=== PATIENT | female | born 1980 | race Caucasian/White ===

== ENCOUNTER 2021-12-12 13:09 | Emergency (ER) | payer OTHER ==
[~2021-12-12] VITALS: Ht 172.7 cm; Wt 59.0 kg
[2021-12-12] MEDS ORDERED: APPLE CIDER VINEGAR PO (13:45)
[2021-12-12] MEDS ORDERED: MAG HYDROX/AL HYDROX/SIMETH 30 ML LIQUID UDC PO ONE (13:45)
[2021-12-12] MEDS ORDERED: MAG HYDROX/AL HYDROX/SIMETH 30 ML LIQUID UDC ONE (13:49)
[2021-12-12 13:55] LABS: MEAN CORPUSCULAR HEMOGLOBIN 29.7 uug (24.7-32.8); MEAN CORPUSCULAR VOLUME 86.8 fL (75.5-95.3); PLATELET COUNT (AUTO) 252 K/uL (179-408)
[2021-12-12 14:01] LABS: CREATININE 0.6 mg/dL (0.6-1.3); POTASSIUM 3.3 mmol/L (3.5-5.1)
[2021-12-12 14:07] LABS: BILIRUBIN,DIRECT 0.2 mg/dL (0.0-0.2); BILIRUBIN,TOTAL 0.7 mg/dL (0.2-1.0); TOTAL PROTEIN, SERUM 7.7 g/dL (6.4-8.2)
[2021-12-12 14:16] LABS: *URINE HCG, QUAL NEG (NEGATIVE)
[2021-12-12] MEDS ORDERED: ACET-2154 PO (14:30)
[2021-12-12] MEDS ORDERED: PANT40TA2 PO (14:30)
[2021-12-12] MEDS ORDERED: HYDR-3980 PO (14:46)
[2021-12-12] MEDS ORDERED: POTA-194 PO (14:49)
[2021-12-12] MEDS ORDERED: POTASSIUM CHLORIDE 20 MEQ TAB.PRT.SR PO ONE (15:00)
--- NOTE | 2021-12-12 15:01 | NUR ---
PT WAS EVALUATED BY DR BARON. PT WAS D/C'd TO HOME. D/C INSTRUCTIONS GIVEN TO THE PT BY DR BARON.
[2021-12-12 15:03] VITALS: BP 129/71
== END 2021-12-12 16:05 | disposition home or self-care (01) ==
LOC: ER 13:09
DX: R10.9 Unspecified abdominal pain (principal); E87.6 Hypokalemia; Z79.899 Other long term (current) drug therapy
CPT/HCPCS: 36415; 76700; 83690; 84703; 85025; A4663

== ENCOUNTER 2022-11-22 13:07 | Emergency (ER) | payer OTHER ==
[~2022-11-22] VITALS: Ht 167.6 cm; Wt 57.6 kg
[~2022-11-22 13:07] MED LIST: ACET-2154 PO; APPLE CIDER VINEGAR PO; PANT40TA2 PO; POTA-194 PO
--- NOTE | 2022-11-22 13:42 | NUR ---
PT IS IN ROOM #2B. DR CROWDER EVALUATED THE PT.
[2022-11-22] MEDS ORDERED: predniSONE 20 MG TABLET PO ONE (14:00)
[2022-11-22] MEDS ORDERED: predniSONE 20 MG TABLET ONE (14:00)
[2022-11-22] MEDS ORDERED: PRED10TA PO (14:05)
--- NOTE | 2022-11-22 14:08 | NUR ---
PT WAS D/C'd TO HOME. D/C INSTRUCTIONS GIVEN TO THE PT BY DR CROWDER.
[2022-11-22 14:09] VITALS: BP 128/71
== END 2022-11-22 14:19 | disposition home or self-care (01) ==
LOC: ER 13:07
DX: L29.9 Pruritus, unspecified (principal)
CPT/HCPCS: 99283; J7512; A4663